=== PATIENT | female | born 1975 | race Caucasian/White ===

== ENCOUNTER 2019-01-14 16:19 | Emergency (ER) | payer OTHER ==
[~2019-01-14] VITALS: Ht 157.5 cm; Wt 105.2 kg
[2019-01-14] MEDS ORDERED: LISINOPRIL20 MG PO (16:39)
[2019-01-14] MEDS ORDERED: TENORMIN50 MG PO (16:39)
[2019-01-14] MEDS ORDERED: TRAMADOL 50 MG50 MG PO (17:14)
[2019-01-14 17:27] VITALS: BP 144/49
== END 2019-01-14 17:28 | disposition home or self-care (01) ==
LOC: M.ERS 16:19
DX: N63.10 Unspecified lump in the right breast, unspecified quadrant (principal); I10 Essential (primary) hypertension; F17.200 Nicotine dependence, unspecified, uncomplicated; Z88.1 Allergy status to other antibiotic agents

== ENCOUNTER 2019-01-25 20:48 | Emergency (ER) | payer OTHER ==
[~2019-01-25] VITALS: Ht 157.5 cm; Wt 108.9 kg
[~2019-01-25 20:48] MED LIST: LISINOPRIL20 MG PO; TENORMIN50 MG PO; TRAMADOL 50 MG50 MG PO
[2019-01-25 22:15] VITALS: BP 170/82
== END 2019-01-25 22:16 | disposition home or self-care (01) ==
LOC: M.ERS 20:48
DX: J06.9 Acute upper respiratory infection, unspecified (principal); I10 Essential (primary) hypertension; Z90.49 Acquired absence of other specified parts of digestive tract; Z90.710 Acquired absence of both cervix and uterus; Z88.1 Allergy status to other antibiotic agents; Z98.890 Other specified postprocedural states

== ENCOUNTER 2019-02-11 20:39 | Emergency (ER) | payer OTHER ==
[~2019-02-11] VITALS: Ht 157.5 cm; Wt 106.6 kg
[2019-02-11 21:20] LABS: ABSOLUTE BASOPHILS 0.1 thou/uL (0.0-0.2); ABSOLUTE EOSINOPHILS 0.4 thou/uL (0.0-0.7); ABSOLUTE LYMPHOCYTES 2.4 thou/uL (0.8-5.3); ABSOLUTE MONOCYTES 0.5 thou/uL (0.0-1.2); ABSOLUTE NEUTROPHILS 5.3 thou/uL (1.6-8.1); BASOPHILS 0.9 %; EOSINOPHILS 4.1 %; HEMOGLOBIN 12.1 gm/dL (12.0-15.0); LYMPHOCYTES 28.2 %; MCH 25.9 pg (26.0-34.0); MCHC 32.7 g/dL (28.0-37.0); MPV 9.2 fl. (7.2-11.1); NUCLEATED RBCS 0 /100WBC; PLATELET COUNT* 267 thou/uL (150-400); POLYS 60.8 %; RBC 4.68 mil/uL (4.20-5.00); RDW-CV 15.6 % (10.5-14.5); WBC 8.7 thou/uL (4.0-11.0)
[2019-02-11 21:28] LABS: CREATININE 0.8 mg/dL (0.6-1.3); POTASSIUM 3.5 mmol/L (3.5-5.1)
[2019-02-11] MEDS ORDERED: PHENERGAN 25 MG25 M1 PO (22:09)
[2019-02-11] MEDS ORDERED: LISINOPRIL20 MG PO (22:09)
[2019-02-11] MEDS ORDERED: LOPRESSOR50 PO (22:09)
[2019-02-11 22:45] VITALS: BP 142/77
== END 2019-02-11 20:48 | disposition home or self-care (01) ==
LOC: M.ERS 20:39
PROVIDERS: Emergency Medicine
DX: I10 Essential (primary) hypertension (principal); R11.2 Nausea with vomiting, unspecified; R19.7 Diarrhea, unspecified; Z90.49 Acquired absence of other specified parts of digestive tract; Z90.710 Acquired absence of both cervix and uterus; Z98.890 Other specified postprocedural states; Z88.1 Allergy status to other antibiotic agents

== ENCOUNTER 2019-05-20 18:45 | Emergency (ER) | payer MEDICAID ==
[~2019-05-20] VITALS: Ht 157.5 cm; Wt 111.1 kg
[~2019-05-20 18:45] MED LIST changes: +LOPRESSOR50 PO; +PHENERGAN 25 MG25 M1 PO
[2019-05-20] MEDS ORDERED: NORCO 5-325 TA1 EAC1 PO (20:19)
[2019-05-20] MEDS ORDERED: VENTOLIN HFA 1818 GM INH (20:19)
[2019-05-20 20:29] VITALS: BP 149/88
--- NOTE | 2019-05-23 14:33 | EKG ---
[place] [address] ELECTROCARDIOGRAM REPORT Name: DEJAN ROGEL Room: [facility]#: [id number] Admission: 05/20/19 Attend Phys: Discharge: 05/20/19 Date of : 79 Report #: [id number] THIS REPORT FOR: //name// [facility] ED Test Date: 2019-05-20 Test Time: 18:52:55 Pat Name: DEJAN MARKARLINEMOISES Department: Room: Gender: F Paper Latcher: CELE : 1975 Requested By: Wade Amaya Order Number: [id number] MD: Paul Carvalho Measurements Intervals [place] Rate: 71 P: 9 WI: 133 QRS: 52 QRSD: 95 T: 42 QT: 379 QTc: 412 Interpretive Statements Sinus rhythm No previous ECG available for comparison Electronically Signed On 05-23-2019 14:32:37 ARTIST REPRESENTATIVE by Paul Carvalho [email or web address] <ELECTRONICALLY SIGNED> By: Paul Carvalho MD, [facility] 05/23/19 1432 185 1852 Paul Carvalho MD, FACC /EPI
== END 2019-05-20 20:30 | disposition home or self-care (01) ==
LOC: M.ERS 18:45
DX: J40 Bronchitis, not specified as acute or chronic (principal); R09.1 Pleurisy; I10 Essential (primary) hypertension; Z90.49 Acquired absence of other specified parts of digestive tract; Z90.710 Acquired absence of both cervix and uterus; Z98.890 Other specified postprocedural states; Z88.1 Allergy status to other antibiotic agents

== ENCOUNTER 2020-08-31 11:41 | Emergency (ER) | payer OTHER, MEDICAID ==
[~2020-08-31] VITALS: Ht 157.5 cm; Wt 103.0 kg
[~2020-08-31 11:41] MED LIST changes: +NORCO 5-325 TA1 EAC1 PO; +VENTOLIN HFA 1818 GM INH
[2020-08-31] MEDS ORDERED: LISINOPRIL10 MG PO (11:53)
[2020-08-31] MEDS ORDERED: WELLBUTRIN SR150 MG PO (11:54)
[2020-08-31] MEDS ORDERED: METFORMIN HCL500 M3 PO (11:54)
[2020-08-31] MEDS ORDERED: LEVO-T25 MCG PO (11:54)
[2020-08-31] MEDS ORDERED: ZOLOFT100 MG PO (11:55)
[2020-08-31] MEDS ORDERED: SEROQUEL200 MG PO (11:55)
[2020-08-31] MEDS ORDERED: PREDNISONE 20 M20 M1 PO (12:33)
[2020-08-31] MEDS ORDERED: VENTOLIN HFA 1818 GM INH (12:33)
[2020-08-31] MEDS ORDERED: ZPAK PO (12:33)
[2020-08-31 13:20] VITALS: BP 205/88
== END 2020-08-31 13:20 | disposition home or self-care (01) ==
LOC: M.ERS 11:41
DX: J40 Bronchitis, not specified as acute or chronic (principal); I10 Essential (primary) hypertension; F17.210 Nicotine dependence, cigarettes, uncomplicated; Z90.49 Acquired absence of other specified parts of digestive tract; Z88.1 Allergy status to other antibiotic agents; Z90.710 Acquired absence of both cervix and uterus; Z98.890 Other specified postprocedural states

== ENCOUNTER 2020-09-24 13:56 | Emergency (ER) | payer OTHER, MEDICAID ==
[~2020-09-24] VITALS: Ht 162.6 cm; Wt 108.9 kg
[~2020-09-24 13:56] MED LIST changes: +LEVO-T25 MCG PO; +LISINOPRIL10 MG PO; +METFORMIN HCL500 M3 PO; +PREDNISONE 20 M20 M1 PO; +SEROQUEL200 MG PO; +WELLBUTRIN SR150 MG PO; +ZOLOFT100 MG PO; +ZPAK PO
[2020-09-24] MEDS ORDERED: DESYREL150 MG PO (14:11)
[2020-09-24] MEDS ORDERED: TRAMADOL 50 MG50 MG PO (14:11)
[2020-09-24 16:02] LABS: ABSOLUTE BASOPHILS 0.1 thou/uL (0.0-0.2); ABSOLUTE EOSINOPHILS 0.4 thou/uL (0.0-0.7); ABSOLUTE LYMPHOCYTES 1.6 thou/uL (0.8-5.3); ABSOLUTE MONOCYTES 0.4 thou/uL (0.0-1.2); ABSOLUTE NEUTROPHILS 3.5 thou/uL (1.6-8.1); BASOPHILS 1.1 %; EOSINOPHILS 6.9 %; HEMATOCRIT 28.1 % (37.0-47.0); HEMOGLOBIN 8.9 gm/dL (12.0-15.0); LYMPHOCYTES 27.2 %; MCH 23.3 pg (26.0-34.0); MCHC 31.6 g/dL (28.0-37.0); MCV 73.9 fL (80.0-100.0); MONOCYTES 6.5 %; MPV 8.6 fl. (7.2-11.1); NUCLEATED RBCS 0 /100WBC; PLATELET COUNT* 258 thou/uL (150-400); POLYS 58.3 %; RBC 3.81 mil/uL (4.20-5.00); RDW-CV 16.1 % (10.5-14.5)
[2020-09-24 16:11] LABS: CALCIUM 8.7 mg/dL (8.5-10.1); CREATININE 1.2 mg/dL (0.6-1.3); POTASSIUM 4.2 mmol/L (3.5-5.1)
[2020-09-24 16:15] LABS: URINE BILIRUBIN NEGATIVE (Negative); URINE BLOOD NEGATIVE (Negative); URINE CLARITY TURBID; URINE COLOR YELLOW; URINE GLUCOSE-RANDOM NEGATIVE (Negative); URINE KETONES NEGATIVE (Negative); URINE LEUKOCYTES-REFLEX NEGATIVE (Negative); URINE PROTEIN NEGATIVE (Negative); URINE SPECIFIC GRAVITY 1.025 (1.005-1.030); URINE UROBILINOGEN 0.2 E.U./dl (0.2-1.0)
[2020-09-24 16:16] LABS: URINE NITRITE-REFLEX POSITIVE (Negative)
[2020-09-24 16:17] LABS: TOTAL BILIRUBIN 0.2 mg/dL (<0.1-1.0); TOTAL PROTEIN 7.4 g/dL (6.4-8.2)
[2020-09-24 16:27] LABS: BACTERIA-REFLEX >30 Many /HPF (None Seen); CASTS None Seen /LPF (None Seen); CRYSTALS None Seen /LPF (None Seen); SQUAMOUS >10 Many /LPF (0-3); URINE RBC None Seen /HPF (0-2); URINE WBC-REFLEX 6-15 Few /HPF (0-5)
[2020-09-24] MEDS ORDERED: NYSTATIN 100,0015 G1 TOP (17:24)
[2020-09-24] MEDS ORDERED: ONDANSETRON HCL4 M2 PO (17:24)
[2020-09-24] MEDS ORDERED: MACROBID 100 M100 M2 PO (17:24)
[2020-09-24] MEDS ORDERED: BENTYL 10 MG CA10 M1 PO (17:24)
[2020-09-24 17:50] VITALS: BP 127/66
== END 2020-09-24 17:51 | disposition home or self-care (01) ==
LOC: M.ERS 13:56
PROVIDERS: Nurse Practitioner Family
DX: K76.0 Fatty (change of) liver, not elsewhere classified (principal); N28.1 Cyst of kidney, acquired; N39.0 Urinary tract infection, site not specified; K13.70 Unspecified lesions of oral mucosa; B37.2 Candidiasis of skin and nail

== ENCOUNTER 2020-10-04 16:44 | Emergency (ER) | payer OTHER, MEDICAID ==
[~2020-10-04] VITALS: Ht 160 cm; Wt 108.0 kg
[~2020-10-04 16:44] MED LIST changes: +BENTYL 10 MG CA10 M1 PO; +DESYREL150 MG PO; +MACROBID 100 M100 M2 PO; +NYSTATIN 100,0015 G1 TOP; +ONDANSETRON HCL4 M2 PO
[2020-10-04 17:11] LABS: URINE BILIRUBIN NEGATIVE (Negative); URINE BLOOD NEGATIVE (Negative); URINE CLARITY CLEAR; URINE COLOR YELLOW; URINE GLUCOSE-RANDOM NEGATIVE (Negative); URINE KETONES NEGATIVE (Negative); URINE LEUKOCYTES-REFLEX NEGATIVE (Negative); URINE NITRITE-REFLEX NEGATIVE (Negative); URINE PROTEIN NEGATIVE (Negative); URINE UROBILINOGEN 0.2 E.U./dl (0.2-1.0)
[2020-10-04 17:24] LABS: ABSOLUTE BASOPHILS 0.1 thou/uL (0.0-0.2); ABSOLUTE EOSINOPHILS 0.2 thou/uL (0.0-0.7); ABSOLUTE LYMPHOCYTES 1.2 thou/uL (0.8-5.3); ABSOLUTE MONOCYTES 0.5 thou/uL (0.0-1.2); ABSOLUTE NEUTROPHILS 6.9 thou/uL (1.6-8.1); BASOPHILS 0.8 %; EOSINOPHILS 2.1 %; HEMATOCRIT 30.3 % (37.0-47.0); HEMOGLOBIN 9.6 gm/dL (12.0-15.0); LYMPHOCYTES 13.6 %; MCH 22.9 pg (26.0-34.0); MCHC 31.6 g/dL (28.0-37.0); MCV 72.5 fL (80.0-100.0); MONOCYTES 5.3 %; MPV 8.5 fl. (7.2-11.1); NUCLEATED RBCS 0 /100WBC; PLATELET COUNT* 286 thou/uL (150-400); POLYS 78.2 %; RBC 4.18 mil/uL (4.20-5.00); RDW-CV 16.5 % (10.5-14.5); WBC 8.9 thou/uL (4.0-11.0)
[2020-10-04 17:31] LABS: CALCIUM 9.3 mg/dL (8.5-10.1); CREATININE 1.3 mg/dL (0.6-1.3); POTASSIUM 4.1 mmol/L (3.5-5.1)
[2020-10-04 17:37] LABS: ALBUMIN 4.2 g/dL (3.4-5.0); TOTAL BILIRUBIN 0.3 mg/dL (<0.1-1.0); TOTAL PROTEIN 7.8 g/dL (6.4-8.2)
[2020-10-04 18:26] LABS: PLATELET ESTIMATE ADEQUATE
[2020-10-04 18:27] LABS: HYPOCHROMASIA Occasional; MICROCYTES 2+
[2020-10-04] MEDS ORDERED: MIRALAX119 GM PO (19:59)
[2020-10-04 20:25] VITALS: BP 165/95
== END 2020-10-04 20:26 | disposition home or self-care (01) ==
LOC: M.ERS 16:44
PROVIDERS: Physician Assistant
DX: R10.32 Left lower quadrant pain (principal); R11.2 Nausea with vomiting, unspecified; I10 Essential (primary) hypertension; F17.210 Nicotine dependence, cigarettes, uncomplicated; Z79.899 Other long term (current) drug therapy; Z88.1 Allergy status to other antibiotic agents; Z90.49 Acquired absence of other specified parts of digestive tract; Z98.890 Other specified postprocedural states

== ENCOUNTER 2020-10-09 08:08 | Emergency (ER) | payer OTHER, MEDICAID ==
[~2020-10-09] VITALS: Ht 160 cm; Wt 112.5 kg
[~2020-10-09 08:08] MED LIST changes: +MIRALAX119 GM PO
[2020-10-09] MEDS ORDERED: FLEXERIL PO (09:55)
[2020-10-09] MEDS ORDERED: HYDROCODON-ACE1 EAC7 PO (09:55)
[2020-10-09 10:21] VITALS: BP 128/64
== END 2020-10-09 10:21 | disposition home or self-care (01) ==
LOC: M.ERS 08:08
DX: S80.01XA Contusion of right knee, initial encounter (principal); S00.01XA Abrasion of scalp, initial encounter; I10 Essential (primary) hypertension; F17.210 Nicotine dependence, cigarettes, uncomplicated; Z90.49 Acquired absence of other specified parts of digestive tract; Z90.710 Acquired absence of both cervix and uterus; Z98.890 Other specified postprocedural states; Z88.1 Allergy status to other antibiotic agents; Z88.8 Allergy status to other drugs, medicaments and biological substances; V49.59XA Passenger injured in collision with other motor vehicles in traffic accident, initial encounter; Y93.89 Activity, other specified; Y92.89 Other specified places as the place of occurrence of the external cause; Y99.8 Other external cause status

== ENCOUNTER 2021-03-23 10:46 | Emergency (ER) | payer OTHER, MEDICAID ==
[~2021-03-23] VITALS: Ht 160 cm; Wt 97.1 kg
[~2021-03-23 10:46] MED LIST changes: +FLEXERIL PO; +HYDROCODON-ACE1 EAC7 PO
[2021-03-23 11:24] LABS: INFLUENZA A ANTIGEN Negative (Negative); INFLUENZA B ANTIGEN Negative (Negative)
[2021-03-23] MEDS ORDERED: FLONASE 0.05%50 MCG NASAL (11:54)
[2021-03-23 11:58] VITALS: BP 154/88
== END 2021-03-23 11:59 | disposition home or self-care (01) ==
LOC: M.ERS 10:46
PROVIDERS: Nurse Practitioner Psychiatric/Mental Health
DX: J06.9 Acute upper respiratory infection, unspecified (principal); Z20.822 Contact with and (suspected) exposure to COVID-19; I10 Essential (primary) hypertension; F17.210 Nicotine dependence, cigarettes, uncomplicated; Z90.49 Acquired absence of other specified parts of digestive tract; Z90.710 Acquired absence of both cervix and uterus; Z79.899 Other long term (current) drug therapy; Z88.1 Allergy status to other antibiotic agents

== ENCOUNTER 2021-05-03 13:29 | Emergency (ER) | payer OTHER, MEDICAID ==
[~2021-05-03] VITALS: Ht 160 cm; Wt 103.0 kg
[~2021-05-03 13:29] MED LIST changes: +FLONASE 0.05%50 MCG NASAL
[2021-05-03 14:04] LABS: INFLUENZA A ANTIGEN Negative (Negative); INFLUENZA B ANTIGEN Negative (Negative)
[2021-05-03] MEDS ORDERED: MEDROLDOSEPACK PO (14:40)
[2021-05-03] MEDS ORDERED: PROAIR HFA8.5 GM INH (14:40)
[2021-05-03] MEDS ORDERED: ZPAK PO (14:40)
[2021-05-03 14:51] VITALS: BP 184/99
== END 2021-05-03 14:51 | disposition home or self-care (01) ==
LOC: M.ERS 13:29
PROVIDERS: Physician Assistant
DX: J20.9 Acute bronchitis, unspecified (principal); Z20.822 Contact with and (suspected) exposure to COVID-19; I10 Essential (primary) hypertension; Z90.49 Acquired absence of other specified parts of digestive tract; Z90.710 Acquired absence of both cervix and uterus; Z79.899 Other long term (current) drug therapy; Z87.891 Personal history of nicotine dependence; Z88.1 Allergy status to other antibiotic agents

== ENCOUNTER 2021-05-21 10:30 | Emergency (ER) | payer OTHER, MEDICAID ==
[~2021-05-21] VITALS: Ht 157.5 cm; Wt 103.0 kg
[~2021-05-21 10:30] MED LIST changes: +MEDROLDOSEPACK PO; +PROAIR HFA8.5 GM INH
[2021-05-21 14:45] VITALS: BP 149/95
== END 2021-05-21 14:46 | disposition left against medical advice (07) ==
LOC: M.ERS 10:30
DX: R06.02 Shortness of breath (principal); Z53.21 Procedure and treatment not carried out due to patient leaving prior to being seen by health care provider